=== PATIENT | female | born 1970 | race Caucasian/White ===

== ENCOUNTER 2023-08-17 15:48 | Outpatient (CLI) | payer BC, SELFPAY ==
--- NOTE | ~2023-08-17 | MR_ITS ---
EXAMINATION: MR lower leg RT wo con DATE: 08/17/2023 16:48 INDICATION: Right lower leg pain TECHNIQUE: Magnetic resonance imaging (MRI) of the right lower leg was performed without intravenous contrast. A marker was placed over the mass. Sequences included axial, sagittal and coronal T1-weigh arthur FSE and fluid sensitive FSE STIR. The contralateral left lower leg is included on the coronal jhonatan ges. COMPARISON: Ultrasound dated 04/18/2019 FINDINGS: Bone alignment appears normal. Normal bone marrow signal throughout with no reactive edema, fracture or pathologic marrow placing process. There is a subcutaneous lipoma measuring 3.1 x 1.7 x 2.8 cm danyell ng the anterior margin of the distal tibial diaphysis. This appears to represent a lobular extension of a deeper lenticular shaped intramuscular lipoma which measures 4.8 cm craniocaudally and 2.1 x 0.9 cm positioned along the anterolateral margin of the tibia and along the deep margin of the tibialis anterior. Neck connecting the 2 components of a lipoma passes through a 3 x 5 mm fascial defect betwe en the superficial fascia of the anterolateral compartment and the anterior margin of the tibia. The defect is located immediately deep to the marker indicating the site of a painful mass. The musculatu re of the bilateral calves appears otherwise normal and symmetric. No other abnormal masses or fluid collections identified. IMPRESSION: 1. Bilobed lipoma originating in the anterolateral compartment deep or potentially within the tibiali s anterior muscle belly which herniates through a 3 x 5 mm fascial defect with a larger subcutaneous component of the lipoma. Reviewed, dictated and finalized at location B. [facility] REPRESENTATIVE IMPRESSION: 1. Bilobed lipoma originating in the anterolateral compartment deep or potentia lly within the tibialis anterior muscle belly which herniates through a 3 x 5 m m fascial defect with a larger subcutaneous component of the lipoma.
== END 2023-08-17 15:49 ==
LOC: MICIMG 15:49
PROVIDERS: PCP Internal Medicine; Visit Provider Orthopaedic Surgery
DX: M79.661 Pain in right lower leg (principal)
CPT/HCPCS: 73718

== ENCOUNTER 2023-11-08 15:28 | Outpatient (CLI) | payer BC, SELFPAY ==
--- NOTE | ~2023-11-08 | MM_ITS ---
EXAMINATION: MM screening [facility] BI w bridget HISTORY: Screening TECHNIQUE: Craniocaudal and mediolateral oblique 3-D tomosynthesis images were obtained and synthetic 2-D images were generated. CAD analysis was submitted and interpreted. COMPARISON: Comparison to multiple prior studies sequentially, with oldest reviewed study dated 11/14. BREAST PARENCHYMAL COMPOSITION: Not dense: There are scattered areas of fibroglandular density. FINDINGS: There is no evidence of suspicious mass, calcification, or architectural distortion to sugg est malignancy in either breast. There has been no suspicious interval change. IMPRESSION: 1. No mammographic evidence of malignancy. 2. Recommend routine screening mammography in one year. BI-RADS Category 1: Negative Reviewed, dictated and finalized at location A.
== END 2023-11-08 15:29 ==
LOC: MICIMG 15:29
PROVIDERS: PCP Internal Medicine; Visit Provider Internal Medicine
DX: Z12.31 Encounter for screening mammogram for malignant neoplasm of breast (principal)
CPT/HCPCS: 77063; 77067